=== PATIENT | male | born 1965 | race Caucasian/White ===

== ENCOUNTER → 2018-01-28 09:17 | Outpatient (CLI) | payer BC, SELFPAY | PROVIDERS: Family Provider Family Medicine; PCP Family Medicine; Visit Provider Family Medicine | DX: I20.0 Unstable angina (principal) | CPT/HCPCS: 93017 ==

== ENCOUNTER 2019-09-01 12:32 | Inpatient (IN) | payer BC, SELFPAY ==
[2019-09-01] VITALS (30 sets, daily range): BP systolic 113–151; BP diastolic 50–91; PULSE 69–103; RESP 14–20; TEMP 36.6–37.1; O2SAT 97–100; BMI 34.0
[2019-09-01 10:57] LABS: Anion Gap 8.3 mEq/L (5-15); Blood Urea Nitrogen 19 mg/dl (9-20); Calcium 8.9 mg/dl (8.4-10.2); Carbon Dioxide 25 mmol/L (22.0-30.0); Chloride 104 mmol/L (98-107); Estimated Glomerular Filt Rate 102 ml/min (>60); GFR (African American) 123 ML/MIN (>60); Glucose 118 mg/dl (74-100); Potassium 4.3 mmoL/L (3.5-5.1); Sodium 133 mmol/L (136-145)
[2019-09-01 11:05] LABS: Basophils # 0.1 K/mm3 (0-0.2); Basophils % 0.6 % (0.1-2.0); Eosinophils # 0.1 K/mm3 (0.0-0.4); Eosinophils % 0.8 % (0.1-12.0); Lymphocytes # 3.1 K/mm3 (0.7-4.5); Lymphocytes % 24.4 % (10-50); Mean Corpuscular HGB Conc 32.8 g/dL (31.8-35.4); Mean Corpuscular Hemoglobin 29.1 pg (27.0-31.2); Mean Corpuscular Volume 88.7 fl (80-94); Mean Platelet Volume 7.9 fl (7.4-10.4); Monocytes # 0.7 K/mm3 (0.1-1.0); Monocytes % 5.6 % (1.7-9.3); Neutrophils # 8.7 K/mm3 (1.8-7.8); Neutrophils % 68.5 % (37.0-80.0); Platelet Count 362 K/mm3 (142-424); Red Blood Count 2.69 M/mm3 (4.60-6.20); Red Cell Distribution Width 15.4 % (11.5-17.5); White Blood Count 12.7 K/mm3 (4.8-10.8)
[2019-09-01 11:29] LABS: Hematocrit 23.9 % (42.0-52.0); Hemoglobin 7.8 g/dL (14.1-18.0)
--- NOTE | 2019-09-01 12:17 | HMH.HP ---
*Admission Date: 09/01/19 *Chief complaint: Weakness *History of present illness: 54-year-old male seen in my office today for routine follow-up visit regarding sciatica of his right side. However during the visit patient reported that for the last week he had noticed lack of energy, palpitations and dyspnea on exertion without chest pain, lightheadedness upon standing and bowel movements that had become black his night . Patient believes melena have been present for at least the last 5 days. Patient had been on naproxen 500 mg twice daily for his back pain and sciatica and had also completed a 7-day course of prednisone. Patient was pale appearing in the office and tachycardic with a heart rate of 120 bpm. He was sent to the hospital for some labs and hemoglobin has returned at 7.8. Patient's last bowel movement was this morning and was black and tarry. Decision was made to admit the patient for suspected ongoing upper GI bleed. [facility] History I have reviewed the patient's past medical history: Yes *Have you ever received a pneumonia vaccine?: No *Have you received a flu vaccine this season?: No Laterality Cases: Left: ACL Repair (1992, 2003) - *Social History Educational Level: Completed High School Smoking Status: Never smoker Alcohol Intake: never *Occupational Status:: employed *Travel in the last 8 weeks: None Family Hx:: Non-contributory Review of Systems - Constitutional Reports anorexia, Reports fatigue, Reports lack of energy, Reports malaise, Reports weakness, Denies body ache(s), Denies chills, Denies fever(s), Denies headache(s), Denies night sweats - Eyes Denies blind spots, Denies blurry vision - ENT Denies bleeding gums - *Cardiovascular Reports excessive sweating, Reports shortness of breath with activity, Denies chest pain, Denies chest pain at rest, Denies chest pain with activity, Denies generalized swelling, Denies irregular heart rhythm, Denies leg swelling - *Respiratory Reports shortness of breath with activity, Denies chest congestion, Denies cough, Denies coughing up blood - *Gastrointestinal Reports bloating, Reports change in bowel habits, Reports change in stools, Reports black, tarry stools, Denies abdominal pain, Denies coffee ground vomit - *Genitourinary Denies difficulty urinating - *Musculoskeletal Reports back pain, Denies joint pain - *Neurologic Reports abnormal walking Meds Home Medications Medication Instructions Recorded Confirmed Type No Known Home Medications 09/01/19 09/01/19 History Allergies Allergy/AdvReac Type Severity Reaction Status Date / Time No Known Allergies Allergy Verified 09/01/19 12:42 Exam Vital signs and Labs for Last 24 Hours: Laboratory Results - last 24 hr 09/01/19 09:51: Sodium 133 L, Potassium 4.3, Chloride 104, Carbon Dioxide 25, Anion Gap 8.3, BUN 19, Creatinine 0.80, Estimated GFR 102, Est GFR ( Amer) 123, Glucose 118 H, Calcium 8.9 09/01/19 09:51: WBC 12.7 H, RBC 2.69 L, Hgb 7.8 L*, Hct 23.9 L*, MCV 88.7, MCH 29.1, MCHC 32.8, RDW 15.4, Plt Count 362, MPV 7.9, Neut % (Auto) 68.5, Lymph % (Auto) 24.4, [place] % (Auto) 5.6, Eos % (Auto) 0.8, Baso % (Auto) 0.6, Neut # (Auto) 8.7 H, Lymph # (Auto) 3.1, [place] # (Auto) 0.7, Eos # (Auto) 0.1, Baso # (Auto) 0.1 Narrative: Patient is pale in appearance. He breathes heavily during the interview and exam. Pupils are reactive to light. Oropharynx is moist. Neck is without lymphadenopathy. Lungs are clear. Heart is tachycardic with S1 and S2 auscultated. No murmurs heard. Abdomen is soft, nontender, nondistended with active bowel sounds. Extremities are warm to the touch and he has active range of motion in the arms and legs. Neurologically there is no deficit. Assessment and Plan (1) Upper GI bleed Current visit: Yes Status: Acute Category: Medical Code(s): K92.2 - Gastrointestinal hemorrhage, unspecified Patient has been admitted for transfusion of at least 2 units of
--- NOTE | 2019-09-01 14:58 | HMH.GSCON ---
*Admission Date: 09/01/19 *Reason for consult:: GI bleed *History of present illness: Patient is a 54-year-old male who I am seeing in consultation from Dr. Monge for GI bleeding. He had symptoms of right-sided sciatica and had been started on prednisone and Naprosyn. Patient describes some abdominal discomfort with the Naprosyn characterized by hollowness . He had developed symptoms consistent with melena described as black stools. He had been having some progressive weakness, dyspnea on exertion, and some palpitations. He had presented to the office for routine follow-up today with the symptoms and was noted to have appreciable anemia. He was admitted for inpatient management and transfusion. Review of Systems - Review of Systems Review of systems:: pertinent systems reviewed and negative unless documented below - *Neurologic Reports abnormal walking, Reports weakness, Denies headache(s) [facility] History Medical History: Reports:: Hypertension Denies:: Diabetes Mellitus Type 1, Diabetes Mellitus Type 2 *Have you ever received a pneumonia vaccine?: No *Have you received a flu vaccine this season?: No Laterality Cases: Left: ACL Repair (1992, 2003) - *Social History Educational Level: Completed High School Smoking Status: Never smoker Alcohol Intake: never *Occupational Status:: employed Housing: house Household Members: significant other *Travel in the last 8 weeks: None Family Hx:: Non-contributory Meds Home Medications Medication Instructions Recorded Confirmed Type No Known Home Medications 09/01/19 09/01/19 History Allergies Allergy/AdvReac Type Severity Reaction Status Date / Time No Known Allergies Allergy Verified 09/01/19 12:42 Exam Vital signs and Labs for Last 24 Hours: Temp Pulse Resp BP Pulse Ox 97.8 F 103 H 18 134/88 99 09/01/19 12:46 09/01/19 12:46 09/01/19 12:46 09/01/19 12:46 09/01/19 12:46 Laboratory Results - last 24 hr 09/01/19 09:51: Sodium 133 L, Potassium 4.3, Chloride 104, Carbon Dioxide 25, Anion Gap 8.3, BUN 19, Creatinine 0.80, Estimated GFR 102, Est GFR ( Amer) 123, Glucose 118 H, Calcium 8.9 09/01/19 09:51: WBC 12.7 H, RBC 2.69 L, Hgb 7.8 L*, Hct 23.9 L*, MCV 88.7, MCH 29.1, MCHC 32.8, RDW 15.4, Plt Count 362, MPV 7.9, Neut % (Auto) 68.5, Lymph % (Auto) 24.4, [place] % (Auto) 5.6, Eos % (Auto) 0.8, Baso % (Auto) 0.6, Neut # (Auto) 8.7 H, Lymph # (Auto) 3.1, [place] # (Auto) 0.7, Eos # (Auto) 0.1, Baso # (Auto) 0.1 09/01/19 12:47: Blood Type O Positive, Antibody Screen Negative, Crossmatch ([facility]) See Detail 09/01/19 13:58: Blood Type Confirm O Positive I & O for Last 24 hours: Intake & Output 08/30/19 08/31/19 09/01/19 09/02/19 11:59 11:59 11:59 11:59 Weight 250 lb 7 oz Narrative: On examination patient appears somewhat pale but in no acute distress. Abdomen is soft and nontender. Results - Labs 09/01/19 09:51 09/01/19 09:51 Laboratory Results - last 24 hr 09/01/19 09:51: Sodium 133 L, Potassium 4.3, Chloride 104, Carbon Dioxide 25, Anion Gap 8.3, BUN 19, Creatinine 0.80, Estimated GFR 102, Est GFR ( Amer) 123, Glucose 118 H, Calcium 8.9 09/01/19 09:51: WBC 12.7 H, RBC 2.69 L, Hgb 7.8 L*, Hct 23.9 L*, MCV 88.7, MCH 29.1, MCHC 32.8, RDW 15.4, Plt Count 362, MPV 7.9, Neut % (Auto) 68.5, Lymph % (Auto) 24.4, [place] % (Auto) 5.6, Eos % (Auto) 0.8, Baso % (Auto) 0.6, Neut # (Auto) 8.7 H, Lymph # (Auto) 3.1, [place] # (Auto) 0.7, Eos # (Auto) 0.1, Baso # (Auto) 0.1 09/01/19 12:47: Blood Type O Positive, Antibody Screen Negative, Crossmatch ([facility]) See Detail 09/01/19 13:58: Blood Type Confirm O Positive Assessment and Plan (1) Upper GI bleed Current visit: Yes Status: Acute Category: Medical Code(s): K92.2 - Gastrointestinal hemorrhage, unspecified - Assessment and plan all Dx Assessment and Plan for all problems:: Plan for EGD tomorrow for diagnostic purposes.
--- NOTE | 2019-09-01 15:38 | HMH.PHAVTE ---
[facility] Pharmacy VTE Monitoring - Patient Demographics Admission date: 09/01/19 Report Date: 09/01/19 Time: 15:38 Allergies/Adverse Reactions: Patient Allergies No Known Allergies Allergy (Verified 09/01/19 12:42) Height: 1.83 m Weight: 113.597 kg Patient Problems: Current Active Problems Upper GI bleed (Acute) - VTE Risk Labs: VTE Related Lab Results Hgb 7.8 g/dL (14.1-18.0) L* 09/01/19 09:51 Hct 23.9 % (42.0-52.0) L* 09/01/19 09:51 Plt Count 362 K/mm3 (142-424) 09/01/19 09:51 BUN 19 mg/dl (9-20) 09/01/19 09:51 Creatinine 0.80 mg/dl (0.66-1.25) 09/01/19 09:51 Was VTE Risk Assessment Performed: Yes VTE Score: 1 VTE Risk Level: Low Risk Clinical Trial Participant: No - Prophylaxis VTE Prophylaxis Ordered?: Yes Types of VTE Prophylaxis: TEDS Knee High
--- NOTE | 2019-09-01 15:50 | HMH.PHAINT ---
CLARIFIED WITH PATIENT THAT HE TAKES NO HOME MEDICATIONS AND HIS PHARMACY OF CHOICE IS [facility] IN [place].
--- NOTE | 2019-09-01 19:34 | PC.NURSE ---
Pt receiving 2nd unit of PRBC's at this time. Tolerating transfusion well. Denies pain. Tolerating clear liquid diet. Ambulates independently w/ no safety concerns. Report given to Jeanne Basurto RN
[2019-09-01 21:49] LABS: Hematocrit 24.1 % (42.0-52.0); Hemoglobin 8.3 g/dL (14.1-18.0)
[2019-09-02] VITALS (29 sets, daily range): BP systolic 104–139; BP diastolic 59–89; PULSE 57–85; RESP 14–18; TEMP 36.5–37.1; O2SAT 96–99; BMI 33.9
--- NOTE | 2019-09-02 04:36 | PC.NURSE ---
All care provided by La GUERRERO was supervised by Demarco Basurto RN
--- NOTE | 2019-09-02 06:15 | PC.NURSE ---
Pt is A&Ox4 and has ambulated in room and to the bathroom and few times this shift and tolerated well with staff SBA or independently. Pt tolerated clear liquid diet fair. Pt denied nausea but c/o feeling hollow inside and could not continue with broth. Pt did eat a few jello cups t/o the previous shift and 1 this shift. No BM or emesis t/o shift. ABD is soft, slightly tender to palpation, and active bowel sounds. Pt has been NPO since 00:15 on 09/02/19 r/t anticipated EGD with Dr. Hernandez. Pt received an additional 2 units of PRBC this shift per Dr. Monge' communication order if initial 1hr post H/H was < 9. Currently awaiting am lab results for H/H results post 2 additional units. Lungs CTA. Pt denies any SOB or dyspnea. O2 sats 96-100% on room air t/o shift. Pt reports to feeling better than when I came in here . Pt refused TEDs. no edema noted. VSS, call light within reach, will continue to monitor.
[2019-09-02 06:20] LABS: Basophils # 0.1 K/mm3 (0-0.2); Basophils % 0.8 % (0.1-2.0); Eosinophils # 0.1 K/mm3 (0.0-0.4); Lymphocytes # 3.2 K/mm3 (0.7-4.5); Mean Platelet Volume 8.1 fl (7.4-10.4); Red Cell Distribution Width 15.3 % (11.5-17.5)
[2019-09-02 06:24] LABS: Chloride 112 mmol/L (98-107); Potassium 3.8 mmoL/L (3.5-5.1); Sodium 138 mmol/L (136-145)
[2019-09-02 06:27] LABS: Anion Gap 6.8 mEq/L (5-15); Blood Urea Nitrogen 12 mg/dl (9-20); Carbon Dioxide 23 mmol/L (22.0-30.0); Creatinine Clearance Estimated 174 mL/min (50-200); Eosinophils % 1.5 % (0.1-12.0); Estimated Glomerular Filt Rate 102 ml/min (>60); GFR (African American) 123 ML/MIN (>60); Glucose 88 mg/dl (74-100); Hematocrit 29.9 % (42.0-52.0); Lymphocytes % 40.1 % (10-50); Mean Corpuscular HGB Conc 33.7 g/dL (31.8-35.4); Mean Corpuscular Hemoglobin 30.3 pg (27.0-31.2); Monocytes # 0.4 K/mm3 (0.1-1.0); Monocytes % 5.2 % (1.7-9.3); Neutrophils # 4.2 K/mm3 (1.8-7.8); Neutrophils % 52.4 % (37.0-80.0); Platelet Count 226 K/mm3 (142-424); Red Blood Count 3.32 M/mm3 (4.60-6.20)
[2019-09-02 06:34] LABS: Hemoglobin 10.1 g/dL (14.1-18.0)
[2019-09-02 06:48] LABS: Calcium 7.7 mg/dl (8.4-10.2)
--- NOTE | 2019-09-02 06:55 | PC.NURSE ---
pt off floor for EGD
--- NOTE | 2019-09-02 07:20 | HMH.ACPN2 ---
Internal Medicine - PN: Subj *Date: 09/02/19 *Time: 07:20 Interval history: Patient required additional 2 units of packed red cells overnight after his initial transfusion had an adequate response. He reports feeling better to nursing staff than when he came in. Patient is having EGD this morning. Exam Vital signs and Labs for Last 24 Hours: Temp Pulse Resp BP Pulse Ox 97.8 F 64 16 120/74 97 09/02/19 05:30 09/02/19 05:30 09/02/19 05:30 09/02/19 05:30 09/02/19 05:30 Laboratory Results - last 24 hr 09/01/19 09:51: Sodium 133 L, Potassium 4.3, Chloride 104, Carbon Dioxide 25, Anion Gap 8.3, BUN 19, Creatinine 0.80, Estimated GFR 102, Est GFR ( Amer) 123, Glucose 118 H, Calcium 8.9 09/01/19 09:51: WBC 12.7 H, RBC 2.69 L, Hgb 7.8 L*, Hct 23.9 L*, MCV 88.7, MCH 29.1, MCHC 32.8, RDW 15.4, Plt Count 362, MPV 7.9, Neut % (Auto) 68.5, Lymph % (Auto) 24.4, [place] % (Auto) 5.6, Eos % (Auto) 0.8, Baso % (Auto) 0.6, Neut # (Auto) 8.7 H, Lymph # (Auto) 3.1, [place] # (Auto) 0.7, Eos # (Auto) 0.1, Baso # (Auto) 0.1 09/01/19 12:47: Blood Type O Positive, Antibody Screen Negative, Crossmatch ([facility]) See Detail 09/01/19 13:58: Blood Type Confirm O Positive 09/01/19 21:41: Hgb 8.3 L, Hct 24.1 L 09/02/19 05:30: WBC 8.0 D, RBC 3.32 L, Hgb 10.1 L D, Hct 29.9 L, MCV 90.0, MCH 30.3, MCHC 33.7, RDW 15.3, Plt Count 226 D, MPV 8.1, Neut % (Auto) 52.4, Lymph % (Auto) 40.1, [place] % (Auto) 5.2, Eos % (Auto) 1.5, Baso % (Auto) 0.8, Neut # (Auto) 4.2, Lymph # (Auto) 3.2, [place] # (Auto) 0.4, Eos # (Auto) 0.1, Baso # (Auto) 0.1 09/02/19 05:30: Sodium 138, Potassium 3.8, Chloride 112 H, Carbon Dioxide 23, Anion Gap 6.8, BUN 12 D, Creatinine 0.80, Estimated Creat Clear 174, Estimated GFR 102, Est GFR ( Amer) 123, Glucose 88 D, Calcium 7.7 L D I & O for Last 24 hours: Intake & Output 08/30/19 08/31/19 09/01/19 09/02/19 11:59 11:59 11:59 11:59 Intake Total 4252 / 4252 Balance 4252 / 4252 Weight 250 lb 7.016 oz Narrative: Patient looks well. His color has improved. Lungs are clear. Heart has a regular rate and rhythm. Abdomen remains soft Assessment and Plan (1) Upper GI bleed Current visit: Yes Status: Acute Category: Medical Code(s): K92.2 - Gastrointestinal hemorrhage, unspecified - Assessment and plan all Dx Assessment and Plan for all problems:: 1. EGD this morning. 2. Every 6 hour H&H beginning at noon
--- NOTE | 2019-09-02 07:44 | HMH.SCOPE ---
- Procedure: Date: 09/02/19 Procedure Performed:: Esophagogastroduodenoscopy Indications:: Patient is a 54-year-old male who I am seeing in consultation from Dr. Monge for GI bleeding. He had symptoms of right-sided sciatica and had been started on prednisone and Naprosyn. Patient describes some abdominal discomfort with the Naprosyn characterized by hollowness . He had developed symptoms consistent with melena described as black stools. He had been having some progressive weakness, dyspnea on exertion, and some palpitations. He had presented to the office for routine follow-up today with the symptoms and was noted to have appreciable anemia. He was admitted for inpatient management and transfusion. After admission he was given 2 units transfusion with minimal increase in hemoglobin. Additional 2 units transfusion resulted in good response. Performing Provider:: Tomi Hernandez MD Referring Provider:: Moshe Monge MD Sedation:: Propofol Procedure:: Patient was taken to endoscopy procedure room. He was positioned in a lateral decubitus position. Adequate intravenous sedation was achieved with anesthesia titration of propofol. Olympus endoscope was inserted via the oropharynx advanced through the esophagus. Esophagus overall appeared unremarkable. There is minor inflammation at the gastroesophageal junction. Stomach was cannulated and insufflated. Retroflexion revealed a very tiny sliding hiatal hernia. Overall gastric lumen appeared unremarkable. Pylorus was traversed. Within the duodenal bulb there was a relatively clean-based ulcer with some surrounding mucosal erythema and edema. There is no obvious stigmata of recent bleeding. There was some duodenitis within the duodenal bulb. Endoscope was advanced to the distal duodenum which appeared unremarkable. Endoscope was withdrawn. Findings:: Clean-based ulcer in duodenal bulb Recommendations:: Continue proton pump inhibitors. Monitor hemoglobin for stability, if stable over the next 24 hours may be able to be discharged on oral proton pump inhibitors with outpatient follow-up. Complications:: None immediately apparent Estimated blood obtained (mL): 0
--- NOTE | 2019-09-02 07:54 | HMH.ANESCL ---
[facility] Anesthesia Checklist - Structural Data Admitted From: Inpatient Planned Operative Procedure/s: egd Consent for Planned Operative Procedure(s) Verified: Yes - Airway Assessment C-Spine Mobility Assessed: Yes TMJ Mobility Assessed: Yes Dentition: Good Dentition - Neurological Assessment Level of Consciousness: Awake, Alert, Appropriate - Anesthesia Plan Anesthesia Risk discussed: Yes Anesthesia Plan: Verified ASA Class: II Anesthesia Type: MAC [facility] History I have reviewed the patient's past medical history: Yes Medical History: Reports:: Hypertension Denies:: Diabetes Mellitus Type 1, Diabetes Mellitus Type 2 *Have you ever received a pneumonia vaccine?: No *Have you received a flu vaccine this season?: No Anesthesia experience/problems:: none Laterality Cases: Left: ACL Repair (1992, 2003) - *Social History Educational Level: Completed High School Smoking Status: Never smoker Alcohol Intake: never Substance Use Type: denies use *Occupational Status:: employed Housing: house Household Members: significant other *Travel in the last 8 weeks: None Family Hx:: Non-contributory
[2019-09-02 11:53] LABS: Hematocrit 28.3 % (42.0-52.0); Hemoglobin 9.5 g/dL (14.1-18.0)
[2019-09-02 17:47] LABS: Hemoglobin 9.5 g/dL (14.1-18.0)
--- NOTE | 2019-09-02 17:53 | PC.NURSE ---
PT IS A&OX3. RN WALKED IN ROOM AND NOTICED HE WAS EATING A MEAL FROM A [employer], EDUCATION WAS GIVEN ON WHY HE WAS ORDERED A FULL LIQUID DIET, PT STATED HE WAS HUNGRY AND CANT JUST EAT LIQUIDS. HE HAS HAD NO COMPLAINTS. VSS. WILL CONT. TO MONITOR.
--- NOTE | 2019-09-02 19:10 | PC.NURSE ---
report given to li
[2019-09-03 04:00] VITALS: BP 133/76; PULSE 64; RESP 18; TEMP 37.1; O2SAT 97
[2019-09-03 05:00] VITALS: BMI 34.5
--- NOTE | 2019-09-03 06:06 | PC.NURSE ---
A&OX4. PT TOLERATING RA WELL. PT HAS NO C/O CHEST OR ABD PAIN THIS SHIFT. PT HAS ONLY C/O RESTLESS LEG PAIN, TREATED WITH PRN PAIN MED PER JUN. ON REASSESSMENT, PT RESTING IN BED WITH EYES CLOSED. NO OTHER COMPLAINTS THUS FAR. PT REPORTS HAVING BM THIS SHIFT. PT STATES THAT PART OF THE BM WAS BLACK, BUT THE SECOND HALF WAS A DARK BROWN. PT TOLERATING DIET WELL. VSS WILL CONTINUE TO MONITOR.
[2019-09-03 06:26] LABS: Basophils % 0.3 % (0.1-2.0); Eosinophils # 0.2 K/mm3 (0.0-0.4); Eosinophils % 2.1 % (0.1-12.0); Hematocrit 28.3 % (42.0-52.0); Hemoglobin 9.3 g/dL (14.1-18.0); Lymphocytes # 2.2 K/mm3 (0.7-4.5); Lymphocytes % 28.8 % (10-50); Mean Corpuscular HGB Conc 32.8 g/dL (31.8-35.4); Mean Corpuscular Hemoglobin 29.9 pg (27.0-31.2); Mean Corpuscular Volume 91.3 fl (80-94); Mean Platelet Volume 7.8 fl (7.4-10.4); Monocytes # 0.4 K/mm3 (0.1-1.0); Monocytes % 5.7 % (1.7-9.3); Neutrophils # 4.9 K/mm3 (1.8-7.8); Neutrophils % 63.1 % (37.0-80.0); Platelet Count 223 K/mm3 (142-424); Red Blood Count 3.11 M/mm3 (4.60-6.20); Red Cell Distribution Width 15.2 % (11.5-17.5); White Blood Count 7.7 K/mm3 (4.8-10.8)
--- NOTE | 2019-09-03 06:30 | PC.NURSE ---
RN NOTIFIED OF WEIGHT GAIN
--- NOTE | 2019-09-03 06:55 | HMH.GSPN ---
Subjective Patient reports: no new complaints, feels better Exam Vital signs and Labs for Last 24 Hours: Temp Pulse Resp BP Pulse Ox 98.8 F 64 18 133/76 97 09/03/19 04:00 09/03/19 04:00 09/03/19 04:00 09/03/19 04:00 09/03/19 04:00 Laboratory Results - last 24 hr 09/01/19 12:47: Crossmatch ([facility]) See Detail 09/02/19 11:45: Hgb 9.5 L, Hct 28.3 L 09/02/19 17:38: Hgb 9.5 L, Hct 27.0 L 09/03/19 05:53: WBC 7.7, RBC 3.11 L, Hgb 9.3 L, Hct 28.3 L, MCV 91.3, MCH 29.9, MCHC 32.8, RDW 15.2, Plt Count 223, MPV 7.8, Neut % (Auto) 63.1, Lymph % (Auto) 28.8, [place] % (Auto) 5.7, Eos % (Auto) 2.1, Baso % (Auto) 0.3, Neut # (Auto) 4.9, Lymph # (Auto) 2.2, [place] # (Auto) 0.4, Eos # (Auto) 0.2, Baso # (Auto) 0.0 I & O for Last 24 hours: Intake & Output 08/31/19 09/01/19 09/02/19 09/03/19 11:59 11:59 11:59 11:59 Intake Total 4256 / 4257 2068 Balance 4256 / [id number] Weight 250 lb 7.016 oz 255 lb 6 oz - Constitutional no acute distress - *Routine Respiratory Exam Absent: respiratory distress - *Routine Cardiovascular Exam Present: RRR Progress Note: A&P (1) Upper GI bleed Status: Acute Assessment and plan: Hemoglobin stable this morning. No sign of definitive ongoing hemorrhage. Likely discharge home soon on proton pump inhibition and close outpatient follow-up Current Visit: Yes (2) Duodenal ulcer Status: Acute Assessment and plan: Continue PPI Close outpatient follow-up with likely repeat EGD in 6-8 weeks Current Visit: Yes
--- NOTE | 2019-09-03 07:12 | HMH.DCSUM ---
General - General Admission date:: 09/01/19 Discharge date: 09/03/19 HPI HPI: 54-year-old male seen in my office today for routine follow-up visit regarding sciatica of his right side. However during the visit patient reported that for the last week he had noticed lack of energy, palpitations and dyspnea on exertion without chest pain, lightheadedness upon standing and bowel movements that had become black his night . Patient believes melena have been present for at least the last 5 days. Patient had been on naproxen 500 mg twice daily for his back pain and sciatica and had also completed a 7-day course of prednisone. Patient was pale appearing in the office and tachycardic with a heart rate of 120 bpm. He was sent to the hospital for some labs and hemoglobin has returned at 7.8. Patient's last bowel movement was this morning and was black and tarry. Decision was made to admit the patient for suspected ongoing upper GI bleed. Hospital Course Hospital Course: Patient was admitted and transfused 2 units of packed red blood cells. Patient had an adequate response to his initial 2 units which raised suspicion for ongoing bleeding. Hemoglobin jose from 7.8-8.3 after initial 2 units of packed red blood cells so patient was transfused 2 more units of packed red blood cells on the evening of the . Patient's hemoglobin jose to 10. H&H was monitored every 6 hours subsequently. Hemoglobin decreased to 9-1/2 and stayed at 9-1/2 for the remainder of hospitalization. On September 01 patient underwent EGD showing a duodenal ulcer that was not bleeding. Plan is for repeat EGD by Dr. Hernandez in approximately 6 weeks. Patient was started on a Protonix drip on admission and this was transitioned to twice daily IV Protonix and subsequently oral Protonix at discharge. Patient has been advised to stop all NSAIDs. Patient will follow-up in the office in 1 week for repeat CBC. Patient will be started on Protonix and iron supplementation at discharge Objective Vital signs: Temp Pulse Resp BP Pulse Ox 98.8 F 64 18 133/76 97 09/03/19 04:00 09/03/19 04:00 09/03/19 04:00 09/03/19 04:00 09/03/19 04:00 no acute distress - *Routine Respiratory Exam Present: CTA bilaterally - *Routine Cardiovascular Exam Present: RRR - *Routine Abdominal Exam Present: soft, normoactive bowel sounds. Absent: tenderness Results Labs on day of discharge: Labs from last 24 hours 09/03/19 09/02/19 09/02/19 05:53 17:38 11:45 WBC 7.7 RBC 3.11 L Hgb 9.3 L 9.5 L 9.5 L Hct 28.3 L 27.0 L 28.3 L MCV 91.3 MCH 29.9 MCHC 32.8 RDW 15.2 Plt Count 223 MPV 7.8 Neut % (Auto) 63.1 Lymph % (Auto) 28.8 [place]ink[place] % (Auto) 5.7 Eos % (Auto) 2.1 Baso % (Auto) 0.3 Neut # (Auto) 4.9 Lymph # (Auto) 2.2 Winkler # (Auto) 0.4 Eos # (Auto) 0.2 Baso # (Auto) 0.0 DS: Diagnosis - Discharge Diagnosis (1) Upper GI bleed Status: Acute (2) Duodenal ulcer Status: Acute Discharge Plan - Patient Discharge Instructions ACTIVITY: Continue current activity DIET: continue same diet Patient Instructions: Gastrointestinal Bleeding - Follow up Plan Follow up with: Tomi Hernandez MD [Staff Physician] - 1 week Moshe Monge MD [Primary Care Provider] - Disposition: Home, Self-Custodial Medications: Home Medications Medication Instructions Recorded Confirmed Type No Known Home Medications 09/01/19 09/01/19 History Ferrous Sulfate [Ferrous Sulfate 325 mg PO DAILY #30 tab 09/03/19 Rx 325mg Tablet] Hydrocod/Acet 5/325 mg [[place] 1 tab PO Q6HP PRN #14 tablet 09/03/19 Rx 5/325mg tablet] Pantoprazole Sodium [Protonix 40mg 40 mg PO DAILY 30 Days #30 tab 09/03/19 Rx tablet] Prescriptions/Medication Reconciliation: New Hydrocod/Acet 5/325 mg [[place] 5/325mg tablet] 1 tab PO Q6HP PRN #14 tablet PRN Reason: Mild To Moderate Pain Jeff
--- NOTE | 2019-09-03 07:15 | SW/DCPLANNER ---
PATIENT ADMITTED TO [facility] ON 08/31 WITH A GI BLEED AND DUODENAL ULCER, HE HAS DONE WELL WITH HIS COURSE OF STAY AND IS DISCHARGING HOME TODAY.. 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 WILL FOLLOW UP WITH DR TELLO IN THE OFFICE AT HIS DESIGNATED TIME...
[2019-09-03 08:00] VITALS: BP 121/70; PULSE 67; RESP 16; TEMP 36.6; O2SAT 97
== END 2019-09-03 09:19 | disposition home or self-care (01) | DRG 379 ==
PROVIDERS: Surgery; Admitting Provider Family Medicine; PCP Family Medicine; Visit Provider Family Medicine
PROC: 0DJ08ZZ Inspection of Upper Intestinal Tract, Via Natural or Artificial Opening Endoscopic (ICD-10-PCS; CPT 43235; principal; 2019-09-02 07:30)
DX: K26.0 Acute duodenal ulcer with hemorrhage (principal); D50.0 Iron deficiency anemia secondary to blood loss (chronic)
CPT/HCPCS: 43235; 36415; 80048; 85014; 85018; 85025; 86850; P9016

== ENCOUNTER 2019-11-04 08:00 | Outpatient (RCR) | payer BC, SELFPAY ==
--- NOTE | 2019-08-21 11:18 | HMH.PTOPEV ---
PT Outpatient Evaluation Rehab PT Outpatient Evaluation Start: 08/21/19 10:34 Freq: Status: Active Protocol: Document 08/21/19 10:34 TEDDY (Rec: 08/21/19 11:18 TEDDY [id number]) Electronically Signed By Liu Jean Baptiste, PT 08/21/19 10:34 Outpatient Therapy Subjective History Subjective History Pt reports acute R hip area pain beginning ~2 weeks ago following lifting injury. Pt reports moving/picking up fence posts 'probably did this ', now reports 'burning' in R hip area with radicular pain down to R knee level, 'very little' LBP reported. Chief Complaint Pain,Stiff,Paresthesia Symptom Type Ache,Sharp,Dull,Burning Symptoms Relieved By Rest/Positioning,Prescription Meds Symptoms Aggravated By Standing,Twisting,Walking Prior Functional Limitations None Current Functional Limitations Lifting,Standing,Sitting, Walking,Bending/Stooping Symptom Description Constant but Variable Level of pain today (0-10) 6 Pain scale - at its best (0-10) 6 Pain scale - at its worst (0-10) 8 Lumbopelvic Eval Posture Thoracic Spine Posture Standing Position Neutral Lumbar Spine Posture Standing Position Neutral Gait Observation General Gait Pattern Observation Antalgic Gait Palapation tenderness right lumbar spinal tenderness Yes: 1-2/4 paraspinal tenderness Yes: 3/4 buttock tenderness Yes: 3/4 Accessory Movement L-spine Vertebrae Accessory Movements Right P/A [place] that Elicit Symptoms L4 right L5 right Range of Motion Lumbar Spine Active Flexion Range of 0-50 Motion (degrees) Lumbar Spine Active Extension Range of 0-25 Motion (degrees) Left Lumbar Spine Lateral Flexion Active 0-30 Range of Motion (degrees) Right Lumbar Spine Lateral Flexion 0-25 Active Range of Motion (degrees) Lumbar Spine ROM Limitations Pain Manual Muscle Test Left Knee Extension Strength Grade 5 Normal Knee Flexion Strength Grade 5 Normal Hip Flexion Strength Grade 5 Normal Extensor Hallucis Longus Strength Grade 5 Normal Ankle Dorsiflexion Strength Grade 5 Normal Gastronemius/Soleus Strength Grade 5 Normal Right Knee Extension Strength Grade 4 Good Knee Flexion Strength Grade 4 Good Hip Flexion Strength Grade 4- Good- Extensor Hallucis Longus Strength Grade 5 Normal Ankle Dorsiflexion Strength Grade 5 Normal Gastronemius/Soleus Strength Grade 5 Normal DTR
--- NOTE | 2019-09-22 08:27 | HMH.RHREAS ---
Rehab Reassessment Rehab OP Re-assessment Start: 09/22/19 08:04 Freq: Status: Active Protocol: Document 09/22/19 08:05 TEDDY (Rec: 09/22/19 08:27 TEDDY [id number]) Electronically Signed By Liu Jean Baptiste, PT 09/22/19 08:05 Rehab Re-assessment Subjective Subjective PT REPORTS IMPROVED LBP AND R LE S/S SINCE I EVAL, 'ONLY HAS THAT BURNING SENSATION WHEN I 'M SITTING STILL'. Objective Objective Notes AROM: FLX 0-55, EXT 0-30, B SB 0-35 MMT: R HIP FLX 4+/5, R KNEE EXT AND FLX 5/5, R DF 5/5 TTP: R PIRI. MM 1-05/12, R LUMBAR PARA 0-04/11 Assessment Progress Assessment Progressing as Expected Assessment Notes PT W/IMPROVED STRENGTH, ROM, AND TTP Patient goals met STG'S 10/13 LTG'S 07/16 Goals Not Met STG'S 04/15, LTG'S 09/15 Plan Plan PT TO CONT W/SKILLED P.T. TO MAKE FURTHER IMPROVEMENTS IN ROM, STRENGTH, AND TTP TO ALLOW FOR OPTIMAL FUNCTION Frequency of Therapy 1-2X/WK Duration of therapy 3-4 WKS Time and Billing Re-Eval Time 15 Re-Eval Billing Units 1 PHYSICIAN CERTIFICATION: I certify the specified therapy services for Evan Herrera are required, authorized, and reviewed every 30 days.
--- NOTE | 2019-10-14 08:53 | HMH.RHREAS ---
Rehab Reassessment Rehab OP Re-assessment Start: 09/22/19 08:04 Freq: Status: Active Protocol: Document 10/14/19 08:49 TEDDY (Rec: 10/14/19 08:53 TEDDY [id number]) Electronically Signed By Liu Jean Baptiste, PT 10/14/19 08:49 Rehab Re-assessment Subjective Subjective PT REPORTS LBP @6-7/10 W/ ACTIVITY, AND 0-1/10 ON VAS WHEN AT REST, AND FEELS 75% BETTER OVERALL SINCE I EVAL Objective Objective Notes AROM: L-SPINE FLX 0-70, EXT 0- 35, B SB 0-40 MMT: R HIP FLX 4+/5, R KNEE EXT AND FLX 5/5, R DF 5/5 TTP: R PIRI. MM 1-2/4, R LUMBAR PARA 0-1/4 Assessment Progress Assessment Progressing as Expected Assessment Notes PT W/SLIGHT IMPROVEMENT IN ROM Patient goals met STG'S 10/13 LTG'S 09/15 Goals Not Met STG'S 04/15, LTG'S 07/16 Plan Plan PT TO CONT W/SKILLED P.T. TO MAKE FURTHER IMPROVEMENTS IN ROM, STRENGTH, AND TTP TO ALLOW FOR OPTIMAL FUNCTION IN AN EFFORT TO RETURN TO WORK FULL-DUTY Frequency of Therapy 1-2X/WK Duration of therapy 3-4WKS Time and Billing Re-Eval Time 15 Re-Eval Billing Units 1 PHYSICIAN CERTIFICATION: I certify the specified therapy services for Evan Herrera are required, authorized, and reviewed every 30 days.
== END 2019-11-04 08:39 | disposition home or self-care (01) ==
LOC: PT 08:00
PROVIDERS: Visit Provider Family Medicine
DX: M54.31 Sciatica, right side (principal)
CPT/HCPCS: 97010; 97012; 97014; 97016; 97110; 97163; 97164; G0283

== ENCOUNTER 2021-07-12 08:00 | Outpatient (RCR) | payer BC, SELFPAY | END 2021-07-12 08:05 | disposition home or self-care (01) | LOC: OT 08:00 | PROVIDERS: PCP Family Medicine; Visit Provider Orthopaedic Surgery Hand Surgery | DX: M19.031 Primary osteoarthritis, right wrist (principal) | CPT/HCPCS: 97010; 97014; 97033; 97035; 97110; 97140; 97164; 97166; 97763; G0283 ==

== ENCOUNTER 2021-08-26 16:02 | Emergency (ER) | payer BC, SELFPAY ==
--- NOTE | 2021-08-26 16:23 | HMH.EDUTC ---
[facility] [place]position Clinical Impression: Need for Tdap vaccination Laceration of abdominal wall Qualifiers: Encounter type: initial encounter Qualified Code(s): S31.119A - Laceration without foreign body of abdominal wall, unspecified quadrant without penetration into peritoneal cavity, initial encounter Disposition: Home, Self-Care Condition on Discharge: Good Instructions: How to Care for a Laceration After Repair, DI for Laceration Repair -- Simple, Tetanus, Diphtheria, Pertussis (Tdap) Vaccine Additional Instructions: Keep the wound clean and dry. Keep a dressing on it if you are going to be getting it dirty. Watch the for signs of infection, such as redness, swelling, drainage, fever. etc. take tylenol or ibuprofen for pain. Follow up with your regular doctor. Return in 7 to 10 days to have the sutures removed. Probably closer to the 10 days, since this wound was kind of wide and its on your abdomen where it might pull at it at times. Take the keflex as directed. GO TO THE ER FOR ANY WORSENING SYMPTOMS OR CONCERNS. Prescriptions: cephALEXin [cephALEXin 500mg capsule] 500 mg PO Q6H 7 Days #28 cap Transmission Status: Received by [id number] Referrals: Keely Bansal APRN [Primary Care Provider] - Time of Disposition: 16:57 Medical Decision Making - Medical Records Medical records reviewed: No: I reviewed the patient's medical records. - Greg Inquiry Pt receiving controlled substance: No Vital Signs: 08/26/21 16:43 08/26/21 17:09 Temperature 97.7 F 97.7 F Temperature Source Oral Pulse Rate 77 Pulse Rate [Left Radial] 77 Respiratory Rate 19 19 Blood Pressure 138/95 H Blood Pressure [Right Arm] 138/95 H Blood Pressure Mean [Right Arm] 109 02 Sat by Pulse Oximetry 95 Orders (Tests/Meds): ED MEDICATIONS Discontinued Medications Generic Name Dose Route Start Last Admin Trade Name Freq PRN Reason Stop Dose Admin Tetanus/Diphtheria Toxoids 0.5 ml 08/26/21 17:10 08/26/21 17:11 Tetanus-Diphth Toxoid, Adult 0.5ml Syr IM 08/26/21 17:11 0.5 ml .ONCE ONE Administration [facility] HPI - General Stated complaint: AO 08/26 @home lac to stomach Time Seen by Provider: 08/26/21 16:23 - History of Present Illness Provider Complaint: 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 The grinding wheel came apart and part of it hit him on the left side of his abdomen. He has a 3 cm linear laceraton on his left lower quadrant of his abdomen. His tetanus immunization is not up to date. - Related Data Previous Rx's Medication Instructions Recorded Ferrous Sulfate [Ferrous Sulfate 325 mg PO DAILY #30 tab 09/03/19 325mg Tablet] Hydrocod/Acet 5/325 mg [[place] 1 tab PO Q6HP PRN #14 tab 09/03/19 5/325mg tablet] Pantoprazole Sodium [Protonix 40mg 40 mg PO DAILY 30 Days #30 tab 09/03/19 tablet] cephALEXin [cephALEXin 500mg 500 mg PO Q6H 7 Days #28 cap 08/26/21 capsule] Allergies Allergy/AdvReac Type Severity Reaction Status Date / Time No Known Allergies Allergy Verified 09/01/19 12:42 [facility] History - Hepatitis A Screen Attestation statement:: This patient has been screened for Hepatitis A risk factors. I have reviewed the patient's past medical history: Yes Medical History: Reports:: Hypertension Denies:: Diabetes Mellitus Type 1, Diabetes Mellitus Type 2 Laterality Cases: Left: ACL Repair (1992, 2003) - Social History Smoking Status: Never smoker Alcohol Intake: never Substance Use Type: denies use Occupational Status: employed Housing: house Household Members: significant other Family Hx:: Non-contributory ROS Obtained: Yes All systems reviewed & no additional complaints - Constitutional Constitutional: Denies chills, Denies fever(s) - Musculoskeletal Musculoskeletal: Denies joint pain - Integumentary/Breasts Skin/Breast: Reports as per HPI - Neurologic Neurologic: Denies tingling/nu
[2021-08-26 16:43] VITALS: BP 138/95; PULSE 77; RESP 19; TEMP 36.5; O2SAT 95; BMI 37.3
[2021-08-26 17:09] VITALS: BP 138/95; PULSE 77; RESP 19; TEMP 36.5
== END 2021-08-26 17:15 | disposition home or self-care (01) ==
PROVIDERS: Emergency Provider Nurse Practitioner Family; PCP Nurse Practitioner Family
DX: S31.119A Laceration without foreign body of abdominal wall, unspecified quadrant without penetration into peritoneal cavity, initial encounter (principal); I10 Essential (primary) hypertension; E10.8 Type 1 diabetes mellitus with unspecified complications; Z79.899 Other long term (current) drug therapy
CPT/HCPCS: 12002; 90471; 90714; 99213; G0463

== ENCOUNTER → 2023-03-12 14:59 | Outpatient (CLI) | payer OTHER, SELFPAY ==
--- NOTE | 2023-03-12 | CA_ITS ---
FINAL REPORT TECHNIQUE: Color Doppler, duplex Doppler and compression sonography of the left lower extremity deep venous systems was performed. CLINICAL HISTORY: POST OP BILATERAL LOWER LEG FRACTURES, SWELLING COMPARISON: None FINDINGS: There is no evidence of deep venous thrombosis from the level of the groin to the calf. The veins are patent and compressible. IMPRESSION: No evidence of deep venous thrombosis left lower extremity. Reviewed, Interpreted and Dictated by Tomi Infante III, MD Transcribed by Fawn Rowe Authenticated and [facility]
== END ==
PROVIDERS: Visit Provider Specialist/Technologist Athletic Trainer
DX: M79.662 Pain in left lower leg (principal); R60.0 Localized edema
CPT/HCPCS: 93971

== ENCOUNTER 2023-07-10 08:00 | Outpatient (RCR) | payer OTHER, SELFPAY | END 2023-07-10 09:10 | disposition home or self-care (01) | LOC: PT 08:00 | PROVIDERS: Visit Provider Orthopaedic Surgery | DX: M79.604 Pain in right leg (principal); M79.605 Pain in left leg; S82.201A Unspecified fracture of shaft of right tibia, initial encounter for closed fracture; S82.202A Unspecified fracture of shaft of left tibia, initial encounter for closed fracture; Z98.890 Other specified postprocedural states | CPT/HCPCS: 97010; 97014; 97016; 97110; 97112; 97140; 97163; 97164; 97530; 97535; G0283 ==

== ENCOUNTER 2023-12-19 08:00 | Outpatient (RCR) | payer BC, SELFPAY | END 2023-12-19 08:05 | disposition home or self-care (01) | LOC: PT 08:00 | PROVIDERS: Visit Provider Orthopaedic Surgery | DX: M25.562 Pain in left knee (principal); Z96.652 Presence of left artificial knee joint | CPT/HCPCS: 97010; 97014; 97016; 97110; 97112; 97140; 97163; 97164; 97530; G0283 ==

== ENCOUNTER 2024-01-30 07:34 | Day surgery (SDC) | payer BC, SELFPAY ==
[2024-01-28 14:20] VITALS: BMI 36.6
[2024-01-30] MEDS: LACTATED RINGERS 1000ML 1,000 ML 25 ML IV (07:44)
[2024-01-30 07:50] VITALS: BP 135/91; PULSE 56; RESP 18; TEMP 36.4; O2SAT 94
--- NOTE | 2024-01-30 07:51 | P.PNANES_ITS ---
[facility] Disclaimer: The information contained in this section may have been updated after the patient was seen, as this information can be updated by other users. Medical History HETAL on CPAP Surgical History History of arthroscopy of left shoulder History of surgery on right wrist History of total knee replacement History of repair of ACL Family History Father Cancer Sister Cancer Social History Smoking Status: Never smoker alcohol intake: never substance use type: denies use current occupational status: employed Travel in the last 8 weeks: None household members: significant other housing: house [facility] Anesthesia Checklist Patient Identification Patient Identification: Arm Band and Verbal (Name & ) Structural Data Admitted From: Home Planned Operative Procedure/s: Colonoscopy Consent for Planned Operative Procedure(s) Verified: Yes Verified Documents: Surgical Consent and History and Physical NPO Status Verified Time NPO: 00:00 Additional verifications Anesthesia Reactions: No Airway Assessment Mallampati Score:: Class II C-Spine Mobility Assessed: Yes TMJ Mobility Assessed: Yes Dentition: Good Dentition Neurological Assessment Level of Consciousness: Awake Hx Seizures: No Numbness or tingling in extremities: No Anesthesia Plan Anesthesia Risk discussed: Yes Anesthesia Plan: Verified ASA Class: II Anesthesia Type: MAC
[2024-01-30 08:26] VITALS: O2SAT 99
--- NOTE | 2024-01-30 08:26 | P.HP_ITS ---
History of Present Illness *Admission Date: 01/30/24 *Reason for visit:: Recurrent bleeding hemorrhoids/prolapsing and history of polyps *History of present illness: Mr. Herrera is a 58-year-old gentleman who is here for diagnostic colonoscopy secondary to recurrent bleeding hemorrhoids and history of polyps. The examination is deemed medically necessary for colonoscopy. The patient has been seen, interviewed and examined prior to the procedure by both myself and the anesthesia provider. [facility] Disclaimer: The information contained in this section may have been updated after the p atient was seen, as this information can be updated by other users. Medical History HETAL on CPAP Surgical History History of arthroscopy of left shoulder History of surgery on right wrist History of total knee replacement History of repair of ACL Family History Father Cancer Sister Cancer Social History Smoking Status: Never smoker alcohol intake: never substance use type: denies use current occupational status: employed Travel in the last 8 weeks: None household members: significant other housing: house Other Medical History Have you received the Flu Vaccine for this season: No Have you received the Pneumonia Vaccine: No Review of Systems Review of Systems Review of systems (narrative): Negative *Cardiovascular Comments: Negative *Gastrointestinal Comments: Negative *Genitourinary Comments: Negative *Musculoskeletal Comments: Negative *Neurologic Comments: Negative Meds Home Medications and Allergies Home Medications ?Medication ?Instructions ?Recorded ?Confirmed ?Type No Known Home Medications 01/30/24 01/30/24 History New Prescriptions to Start Prescriptions: Allergies Allergy/AdvReac Type Severity Reaction Status Date / Time No Known Allergies Allergy Verified 01/14/24 10:52 Exam Data for Last 24 hours Vital signs and Labs for Last 24 Hours: Temp Pulse Resp BP Pulse Ox O2 Del Method 97.6 F 56 L 18 135/91 H 94 L Room Air 01/30/24 07:50 01/30/24 07:50 01/30/24 07:50 01/30/24 07:50 01/30/24 07:50 01/30/24 07:50 I & O for Last 24 hours: Intake & Output 01/27/24 01/28/24 01/29/24 01/30/24 23:59 23:59 23:59 23:59 Weight 270 lb *Routine HEENT Exam Head: Present normocephalic Eye: Present EOMI and PERRL ENT: Present mucous membranes moist *Routine Neck Exam Neck: Present supple *Routine Respiratory Exam Respiratory: Present CTA bilaterally *Routine Cardiovascular Exam Cardiovascular: Present RRR *Routine Abdominal Exam Abdominal: Present soft and normoactive bowel sounds; Absent tenderness *Routine Rectal Exam Rectal:: deferred *Routine Genitalia Exam Genitalia:: deferred *Routine Extremities Exam Extremities: Absent cyanosis, clubbing or edema *Routine Skin Exam Skin: Present warm; Absent rash *Routine Neurological Exam Neurological: Present alert and oriented X3 Assessment and Plan *Assessment and plan (1) Bleeding internal hemorrhoids: Status: Acute Category: Medical Code(s): K64.8 - Other hemorrhoids (2) Personal history of adenomatous and serrated colon polyps: Status: Acute Category: Medical Code(s): Z86.0101 - Personal history of adenomatous and serrated colon polyps Plan A/P: 1. Recurrent bright red rectal bleeding and personal history of adenomatous polyps is the preprocedural diagnosis. The patient will be anesthetized/sedated using MAC sedation. The patient has been seen and examined. Cardiac and lung assessment prior to the examination is stable. Proceed with planned colonoscopy
--- NOTE | 2024-01-30 08:43 | P.PCN_ITS ---
[facility] Procedure Note Date: 01/30/24 Time: 08:44 Procedure Note:: Colonoscopy Procedure Report: Colonoscopy with cold snare polypectomy and hemorrhoid band ligation Endoscopist: Grant Damon II, MD Referring physician: Ricardo Pete MD Date of Procedure: January 30, 2024 Equipment: Olympus 190 variable stiffness pediatric colonoscope Sedation: MAC sedation Indication: Mr. Herrera is a 58-year-old gentleman who had seen me in the office recently because of recurrent hemorrhoidal bleeding and some hemorrhoidal prolapse. The bleeding occurs with almost every bowel movement. He had a colonoscopy with me 4 years ago with hemorrhoid banding. He was taking Konsyl/psyllium 3 times weekly and I recommended that he do this daily. His colonoscopy 4 years ago revealed polyps that were removed. He reports no abdominal pain, weight loss or change in bowel habits. He reports no family history of colon cancer. His father had advanced kidney cancer and his sister had breast cancer at the age of 38. Procedure: Prior to the procedure, a history and physical exam was performed, and patient's medications and allergies were reviewed. The risks, benefits and alternatives of the sedation and procedure were discussed with the patient. All questions were answered and informed consent was obtained. The patient was brought to the procedure room. Patient identification and proposed procedure were verified by the physician and the nurse. The patient was placed in a left lateral decubitus position and the scope was passed under direct vision. Throughout the procedure, the patient's blood pressure, pulse, and oxygen saturations were monitored continuously. The colonoscopy was accomplished without difficulty. The patient tolerated the procedure well. Findings: On digital rectal examination there was normal rectal tone. There were no external hemorrhoids. The colonoscope was introduced through the anal canal to the rectum and advanced to the cecum. The ileocecal valve and appendiceal orifice were identified. The scope was advanced a short distance into the ileum which appeared grossly normal. The scope was then withdrawn into the colon. There were 4 polyps (cecum x 3 (3, 4 and 4 mm) and rectosigmoid x 1 (4 mm)). These were all removed via cold snare polypectomy. The cecum, ascending and transverse colon and mucosa were grossly normal. There were mildly scattered diverticuli throughout the descending and sigmoid colon (LEFT colon). The rectum itself was normal. Upon retroflexion within the rectum there were grade 2-3 internal hemorrhoids. There was some mucosal fibrosis from prior hemorrhoid banding. 3 columns of hemorrhoids were banded using 3 bands with excellent ligation effect. The preparation was excellent throughout with [place] Preparation Score of 9. The cecal time was 12 minutes. Impression: 1. Diminutive colonic polyps x 4 2. Mild left-sided diverticulosis 3. Grade 2-3 internal hemorrhoids status post band ligation x 3 Plan: I would continue psyllium/Konsyl on a daily maintenance basis. I would consider adding Vasculera therapy for his hemorrhoidal disease and we discussed this in the office. I will follow-up the polyp histology and recommend repeat surveillance colonoscopy again in 5 years.
[2024-01-30 08:57] VITALS: BP 141/98; PULSE 74; RESP 18; TEMP 36.6; O2SAT 96
[2024-01-30 09:07] VITALS: BP 138/84; PULSE 77; RESP 16; O2SAT 98
[2024-01-30 09:17] VITALS: BP 134/88; PULSE 67; RESP 16; O2SAT 95
[2024-01-30 09:27] VITALS: BP 133/88; PULSE 71; RESP 16; TEMP 36.6; O2SAT 99
== END 2024-01-30 09:27 | disposition home or self-care (01) ==
PROVIDERS: PCP Internal Medicine; Visit Provider Internal Medicine Gastroenterology
PROC: (CPT 45385; principal; 2024-01-30 09:00)
DX: K64.8 Other hemorrhoids (principal); Z86.0101 Personal history of adenomatous and serrated colon polyps; K63.5 Polyp of colon; K57.30 Diverticulosis of large intestine without perforation or abscess without bleeding
CPT/HCPCS: 45385; 45398; J7120

== ENCOUNTER 2024-03-30 08:00 | Outpatient (RCR) | payer BC, SELFPAY | END 2024-03-30 23:59 | disposition home or self-care (01) | LOC: PT 08:00 | PROVIDERS: Visit Provider Internal Medicine | DX: M54.59 Other low back pain (principal) | CPT/HCPCS: 97010; 97012; 97014; 97035; 97110; 97140; 97163; 97530; G0283 ==

== ENCOUNTER 2024-05-06 08:00 | Outpatient (RCR) | payer BC, SELFPAY | END 2024-05-06 23:59 | disposition home or self-care (01) | LOC: PT 08:00 | PROVIDERS: Visit Provider Internal Medicine | DX: M54.59 Other low back pain (principal) | CPT/HCPCS: 97012; 97014; 97110; 97164; G0283 ==